=== PATIENT | male | born 1960 | race African-American/Black ===

== ENCOUNTER 2019-07-24 21:08 | Day surgery (SDC) | payer MEDICAID, SELFPAY ==
[2019-07-24 21:34] LABS: #Basophils 0.1 thou/uL (0.0-0.2); #Eosinphils 0.1 thou/uL (0.0-0.7); #Lymphocytes 2.7 thou/uL (1.20-3.40); #Neutrophils 4.7 thou/uL (1.40-6.50); %Basophils 1.3 % (0.0-1.0); %Lymphocytes 31.3 % (21.0-51.0); %Monocytes 11.2 % (0.0-10.0); %Neutrophils 55.1 % (42.0-75.0); Hemoglobin 13.3 g/dL (14.0-18.0); Mean Corpuscular HGB CONC 31.4 g/dL (32.0-36.0); Mean Corpuscular Hemoglobin 32.5 pg (27.0-31.0); Mean Platelet Volume 7.6 fL (7.4-10.4); Platelet Count 255 thou/uL (130-400); RBC Distribution Width 13.5 % (11.5-14.5); White Blood Cell (WBC) Count 8.5 thou/uL (4.8-10.8)
[2019-07-24 21:45] LABS: Bacteria/HPF 2+ HPF (None Seen); Bilirubin Negative (Negative); Blood, Urine Negative (Negative); Clarity Turbid (Clear); Glucose, Urine (Dipstick) Normal (Negative); Leukocyte 500 Leu/uL (Negative); Nitrite Negative (Negative); Protein, Urine (Dipstick) Negative (Neg-Trace); RBC/HPF 0-3 HPF (0-3); Squamous Epithelial 0-3 HPF (0-3); WBC/HPF Greater than 50 HPF (0-3)
[2019-07-24 22:01] LABS: ALT (SGPT) 20 U/L (8-55); AST (SGOT) 28 U/L (5-34); Alkaline Phosphatase 55 U/L (40-110); Anion Gap 15 mmol/L (10-20); BUN (Urea Nitrogen) 10 mg/dL (8.4-25.7); Bilirubin, Total 1.4 mg/dL (0.2-1.2); Calc. Creatinine Clearance 0 mL/min (70-130); Calcium 8.8 mg/dL (7.8-10.44); Carbon Dioxide 21 mmol/L (22-29); Chloride 100 mmol/L (98-107); Estimated GFR-MDRD 76; Globulin 3.5 g/dL (2.4-3.5); Glucose 86 mg/dL (70-105); Potassium 3.8 mmol/L (3.5-5.1); Protein, Total 7.5 g/dL (6.0-8.3); Sodium 132 mmol/L (136-145)
[2019-07-24] MEDS ORDERED: Ketorolac Tromethamine 30 MG/ML VIAL ONE (22:29)
--- NOTE | 2019-07-24 23:00 | CT ---
CT ABDOMEN AND PELVIS: Date: 07/24/2019 COMPARISON: None. HISTORY: Left-sided pain radiating into the back. TECHNIQUE: Axial CT imaging obtained at 5 mm intervals from lung bases through the pubic symphysis without contr ast. Coronal and sagittal reformatted imaging obtained. FINDINGS: The lack of contrast media limits assessment of the viscera, bowel, vascular structures, and for lymp hadenopathy. There are mild increased linear densities noted in both lung bases. No free intraperitoneal air is se en. Dense calcification noted within the anterior aspect of the spleen suggesting granulomatous infection . Granulomatous calcifications are also noted within the liver. Gallbladder, pancreas, and adrenal gl ands appear grossly unremarkable. No nephrolithiasis noted on either side. There is mild hydronephrosis and hydroureter noted bilaterally. The urinary bladder is markedly diste nded and demonstrates wall thickening. Urinary bladder measures 14.7 cm AP dimension, 13.8 cm cranioc audal dimension, and 12.1 cm transverse dimension. There is trace free fluid in the pelvis. Limited e valuation of the bowel without oral contrast media demonstrates scattered right-sided diverticulosis without evidence for diverticulitis. The appendix is unremarkable. There is scattered atherosclerotic calcification of the abdominal aorta and its branches, not well evaluated on this exam. Review of the osseous structures demonstrates degenerative change of the hip on the right. There is m ultilevel lower lumbar spine degenerative change, most prominent at the L4-5 and L5-S1 level with dis c space narrowing, degenerative end plate change, and anterior osteophyte formation. IMPRESSION: Distended and thick-walled urinary bladder. Mild bilateral hydronephrosis and hydroureter likely on t he basis of urinary bladder distention. No evidence for small bowel obstruction or free intraperitone al air. POS: [facility]
[2019-07-25] MEDS ORDERED: cefTRIAXone\\ROCEPHIN 2 GM VIAL ONE (00:32)
--- NOTE | 2019-07-25 09:11 | HP ---
DATE OF CONSULTATION: 07/25/2019 CONSULTING: Emergency Room. TRIMMER OPERATOR: Dr. Vega. REASON FOR CONSULTATION: Urinary retention and left flank pain. HISTORY OF PRESENT ILLNESS: Mr. Simmons is a 58-year-old black male who presented to the emergency room with a 2-day history of significant difficulty urinating and left flank pain. He states that he has a greater than 12-year history of urinary difficulty, in which he has had significant problems with urination. He previously has seen a doctor in the past whom he does not remember who gave him tamsulosin, which he took for a period of time, but reports that he did not receive any benefit from this. His urination became increasingly more difficult, although he did not report any blood in his urine. He started having pain on his left side and not feeling well. Therefore, he came into the emergency room. Upon arrival to the ER, it was suspected that the patient may have ureteral stone. He underwent a CT scan without contrast, which demonstrated a distended and thick walled urinary bladder with mild bilateral hydronephrosis and hydroureter, presumably on the basis of urinary bladder distention. There was no evidence for ureteral stones, bowel obstruction, or free intraperitoneal air. I was then consulted for further assistance. Currently, the patient states that he has a little bit of discomfort in his left flank and left lower abdomen, but otherwise denies any severe pain. His current pain is 2/10. He does report that he has been having burning with urination, hesitancy, frequency, nocturia, difficulty urinating, but no hematuria. He does have a history of gonorrhea in the past. He states that he has also been told that he had scar tissue in his urethra, in which he apparently underwent a procedure for over 10 years ago, which he does not remember who he saw at that time or what exactly was done, but he does remember that he eventually started having urinary problems again. He has no history of urolithiasis or any family history of prostate cancer. He apparently has had urinary tract infections in the past. ALLERGIES: UNKNOWN. THE PATIENT DENIES ANY. CURRENT MEDICATIONS: None per patient report. PAST MEDICAL HISTORY: 1. Coronary artery disease. 2. Chronic obstructive pulmonary disease. 3. Hypertension. 4. Hyperlipidemia. 5. Noncompliance. PAST SURGICAL HISTORY: 1. Coronary artery bypass grafting. 2. Stents x2 approximately in 2015. SOCIAL HISTORY: The patient drinks alcohol every week, sometimes every day, generally 2 to 3 beers. He is a former drug user with marijuana, which he states he is not doing anymore, but currently still smokes tobacco. He lives at home with his family. FINDINGS: Unknown and noncontributory other than the patient states that he does have some family members with heart disease. REVIEW OF SYSTEMS: A 12-point review of system was negative other than what was commented on the HPI. PHYSICAL EXAMINATION: VITAL SIGNS: Temperature 98.3, pulse 84, respirations 18, blood pressure 151/94, saturation 100% on room air. GENERAL: No apparent distress. Communicative, alert, well-nourished, well-developed, appears stated age. Normal weight. HEENT: Normocephalic and atraumatic. Pupils are symmetric and round. Sclerae nonicteric. Trachea midline. Moist mucous membranes. CARDIOVASCULAR: Regular rate and rhythm. Normal S1 and S2. Symmetric pulses. CHEST: Nonlabored breathing, symmetric expansion. LUNGS: Clear anteriorly. Prior well-healed CABG incision. ABDOMEN: Soft, nontender, and nondistended. Palpable mass in the suprapubic area consistent with the patient's urinary retention and distended bladder. No scars, hernias, or hepatosplenomegaly. : The patient is uncircumcised. He does have pigmentation loss in the glans penis. Meatus is normal. There is no blood at the meatus. Testes are bilaterally descended without masses. RECTAL: Deferred at this time. No obvious hernia. EXTREMITIES: No clubbing, cyanosis, or edema. SKIN: Warm and dry. No rash or lesions. Good turgor. LYMPH: There are no lymph nodes in the cervical, axillary, supraclavicular, popliteal, or inguinal regions that appear enlarged. MUSCULOSKELETAL: No joint deformities or joint erythema noted. Full range of motion. NEUROLOGIC: Cranial nerves 2 through 12 grossly intact. No focal or sensory deficits identified. PSYCHIATRIC: Alert and oriented x3. Appropriate mood and affect. LABORATORY EVALUATION: Full set of labs are in the [facility] system, which I have reviewed. Of note, the patient's white count is 8.5, hemoglobin 13.3. Creatinine is 1.19 with sodium of 132. Urinalysis demonstrates turbid urine, 2+ bacteria, no squamous cells, greater than 50 white cells, 500 leukocyte esterase. PROCEDURE: Attempts to place a coude catheter. Cota was attempted without success. At this point, I elected to perform a cystoscopic placement of the catheter. The patient was prepped and draped in the usual sterile fashion at bedside. A flexible cystoscope was used to cannulate the meatus and down the urethra until the bulbar urethra was identified. There appeared to be a dense complete walled-off stricture with no patency or lumen identified. There is apparently some kind of lumen as the patient has been urinating, although it is unclear where the lumen is. Using a Amplatz Super Stiff wire, the stricture was probed in an attempt to try and find the lumen, which was unsuccessful. At this point, I felt that it was no longer possible to try and obtain cannulation of patency at bedside. The patient would likely require DVIU in the operating room or require a suprapubic tube placement at bedside. I discussed both options with the patient, he states he did not want a suprapubic tube, but would rather have a DVIU performed. ASSESSMENT AND PLAN: A 58-year-old black male with history of gonorrhea, likely resulting in urethritis and stricturing with a dense bulbar urethral stricture present. This was unable to be cannulated or navigated past at bedside. I have a feeling that the patient will not have success with DVIU if he has apparently had this procedure approximately 10 years ago. I think he would do better with urethroplasty, which would require that he get an SP tube placed now and then a formal urethroplasty later. I discussed this with the patient, but he states he would rather have the DVIU procedure, knowing that it will be less successful, he would still like to try that first. I am fine with that approach if that is what he wishes. I have talked him about taking him to the operating room for a DVIU, explained the surgery in detail, and postop recovery. Risks include greater than 50% chance of stricture recurrence with DVIU alone and the patient requiring indwelling Cota catheter after the surgery. There is a risk for worsening urinary tract infection, new scar tissue formation, worsening scar tissue, incontinence secondary to sphincter injury or damage to the urethra bladder. He understands these risks and states that he wishes to proceed forward with DVIU in the operating room. I will get him posted for the OR, and we will attempt to regain passage there. If that is unsuccessful, then I would recommend placement of a suprapubic tube at that time. SUMMARY OF RECOMMENDATIONS: 1. Keep n.p.o. until surgery. 2. Ceftriaxone IV starting now. 3. To operating room for a DVIU, possible suprapubic tube placement if DVIU was unsuccessful. 4. SCDs on-call to the OR. 5. The patient may be able to be discharged postoperatively as his hydronephrosis is not very severe. If he is showing evidence of postobstructive diuresis, he may need to be admitted to the hospital and have his electrolytes monitored. Job ID: [id number]
[2019-07-25] MEDS ORDERED: EPHEDRINE 25 MG/5 ML SYRINGE ONE (11:35)
[2019-07-25] MEDS ORDERED: PROPOFOL 200 MG/20 ML VIAL ONE (11:35)
[2019-07-25] MEDS ORDERED: PHENYLEPHRINE-NS 100 MCG/ML 10 ML SYRINGE ONE (11:35)
[2019-07-25] MEDS ORDERED: Lidocaine 1% PF 5 ML VIAL ONE (11:35)
[2019-07-25] MEDS ORDERED: Fentanyl 100 MCG/2 ML VIAL ONE ×2 (12:09→13:09)
[2019-07-25] MEDS ORDERED: Iopamidol 50 ML FS ONE (12:51)
--- NOTE | 2019-07-25 15:11 | OP ---
DATE OF PROCEDURE: 07/25/2019 SERVICE: Urology. PREOPERATIVE DIAGNOSIS: Urethral stricture. 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 PROCEDURE PERFORMED: Direct visual internal urethrotomy. INDICATION FOR PROCEDURE: Mr. Simmons is a 58-year-old black male with history of gonorrhea, who presents to the emergency room with urinary retention and bilateral hydronephrosis. His creatinine is still relatively normal, but he is having significant difficulty urinating. Cystoscopy at bedside demonstrated the urethral stricture, which could not be navigated past with cystoscope or a wire. He is now being brought to the operating room for attempted DVIU. Risks and benefits have been discussed and he has agreed to proceed forward. DESCRIPTION OF PROCEDURE: After identification of armband and verification of consent, the patient was brought back to the operating room and he underwent general anesthesia with an LMA. He was then placed in dorsal lithotomy position and prepped and draped in usual sterile fashion. After appropriate time-out, a lubricated 21-[place]i rigid DVIU scope was brought in through the urethra up to the level of the stricture. The stricture was extremely dense and no lumen could be identified. A single stab was made at the center of the stricture, which immediately caused patency and flow of irrigation into the bladder. The stricture was then cut at approximately 5 o'clock, 7 o'clock and 12 o'clock in a Becky type symbol until the stricture completely opened. The stricture was very dense and the urethra was entirely diseased throughout the urethra with multiple annular concentric rings. There was so much scarring and stricturing, actually it is palpable from the outside of the penis. Bimanual exam, this indicates that he does have a severely diseased and scarred urethra. The urethra was opened and a Cota catheter was placed; however, I am nearly 100% confident the DVIU will not be successful and he will end up with a recurrent stricture. Nonetheless, the patient stated he did not want an SP tube at this time. Therefore, no suprapubic tube will be placed. Once the stricture was sufficiently patent to allow for easy passage of the cystoscope, the cystoscope was then advanced into the bladder and the bladder completely emptied. It did require several fillings and emptying to get the mucus and some of the debris out. Upon completion, the bladder showed diffuse trabeculations and cellules with diffuse moderate erythema. The ureters were somewhat difficult to visualize secondary to there being so much edema on the bladder. There were no stones or obvious tumors identified. The bladder does appear to be rather large in capacity. The prostate is mildly hypertrophic with an elevated bladder neck, but no significant obstruction noted. An Amplatz Super Stiff wire was then placed through the lumen of the cystoscope into the bladder and then the cystoscope removed. 16-[place] tip catheter was advanced over the Super Stiff wire into the bladder and the wire removed. 10 mL of sterile water was placed into the balloon and then the catheter was affixed to a leg bag and a StatLock. The patient then taken out of positioning, awakened, taken to PACU for recovery in stable condition. COMPLICATIONS: None. ESTIMATED BLOOD LOSS: Minimal. RETAINED TUBES AND DRAINS: 16-[place] Cota catheter. SPECIMENS: None. DISPOSITION: The patient will be probably discharged home. Plan for followup in 7 days with possible void trial, although I will probably encourage the patient not to seek a void trial as there would be an extremely high likelihood for stricture recurrence. That said, ultimately, the best treatment for this patient will probably be complete urethral reconstruction with augmented urethroplasty. This is probably beyond my skill set and I will either refer him to another urologist here in the city or possibly to [place] if possible. Job ID: [id number]
== END 2019-07-25 16:05 | disposition home or self-care (01) ==
LOC: ERS 21:08 → SDC 07-25 09:54
PROVIDERS: ATTEND Internal Medicine
PROC: 0TND8ZZ Release Urethra, Via Natural or Artificial Opening Endoscopic (ICD-10-PCS; principal; 2019-07-25)
DX: N35.912 Unspecified bulbous urethral stricture, male (principal); N13.30 Unspecified hydronephrosis; R33.9 Retention of urine, unspecified; I10 Essential (primary) hypertension; I25.10 Atherosclerotic heart disease of native coronary artery without angina pectoris; E78.5 Hyperlipidemia, unspecified; J44.9 Chronic obstructive pulmonary disease, unspecified; F17.290 Nicotine dependence, other tobacco product, uncomplicated; Z95.1 Presence of aortocoronary bypass graft; Z95.5 Presence of coronary angioplasty implant and graft
CPT/HCPCS: 36415; 74176; 80053; 81003; 81015; 85025; 87086; 94760; J0696; J1885; J2001; J2704; J3010; Q9967